=== PATIENT | female | born 1985 | race Caucasian/White ===

== ENCOUNTER 2024-09-02 09:17 | Emergency (ER) | payer MEDICAID, SELFPAY ==
[2024-09-02 09:30] VITALS: BP 129/87; PULSE 78; RESP 18; TEMP 36.8; O2SAT 97; BMI 37.4
[2024-09-02] MEDS: DEXAMETHASONE SOD PHOS INJ 10 MG/ML VIAL PO (10:32)
[2024-09-02] MEDS: DiphenhydrAMINE 25 MG CAPSULE PO (10:34)
[2024-09-02] MEDS: LIDOCAINE HCL 1% 20 ML VIAL 2.1 ML INFL (10:34)
[2024-09-02] MEDS: cefTRIAXone SOD INJ 1,000 MG VIAL 1000 MG IM (10:35)
--- NOTE | 2024-09-02 10:38 | PD.EDEYE ---
ED Eye Problem RME/HPI General Chief complaint: Eye Problems Stated complaint: LEFT EYE LID SWOLLEN WHEN SHE WOKE UP Time Seen by Provider: 09/02/24 09:25 Arrival date/time: 09/02/24 09:17 38-year-old female presents the emergency department today for complaints of left upper eyelid swelling erythema and pain Limitations: no limitations Related Data Previous Rx's ?Medication ?Instructions ?Recorded clindamycin HCl 300 mg capsule 300 mg PO TID 7 days #21 caps 09/02/24 erythromycin 5 mg/gram (0.5 %) eye 1.25 cm ophthalmic (eye) QID 7 09/02/24 ointment days #3.5 grams ibuprofen 600 mg tablet 600 mg PO Q6H #30 tabs 09/02/24 Allergies Allergy/AdvReac Type Severity Reaction Status Date / Time No Known Allergies Allergy Verified 09/02/24 09:21 Review of Systems Review of Systems Systems Reviewed: All systems reviewed, normal except as documented Constitutional Constitutional: Reports system reviewed and no additional complaints, except as documented, Denies fever(s) and Denies headache(s) Eyes Eyes: Reports system reviewed and no additional complaints, except as documented, Denies blurry vision and Reports other (Stye left eye) ENT Ears, Nose, Mouth, and Throat: Reports system reviewed and no additional complaints, except as documented, Denies headache(s), Denies nasal congestion and Denies nasal discharge Cardiovascular Cardiovascular: Reports system reviewed and no additional complaints, except as documented, Denies chest pain and Denies dyspnea Respiratory Respiratory: Reports system reviewed and no additional complaints, except as documented, Denies chest congestion, Denies cough and Denies dyspnea Gastrointestinal Gastrointestinal: Reports system reviewed and no additional complaints, except as documented and Denies abdominal pain Integumentary/Breasts Skin/Breast: Reports system reviewed and no additional complaints, except as documented and Denies rash Neurologic Neurologic: Reports system reviewed and no additional complaints, except as documented, Reports as per HPI and Denies headache(s) Past Medical History Social History SMOKING STATUS: Former smoker ED Exam General Limitations: Present no limitations General appearance: Present alert and in no apparent distress Head Head exam: Present atraumatic Eye Eye exam: Present normal appearance, PERRL, EOMI and other (Left upper eyelid swelling) ENT ENT exam: Present normal exam, normal oropharynx and mucous membranes moist Neck Neck exam: Present normal inspection, full ROM and trachea midline Chest Chest inspection: Present normal inspection and symmetric chest wall rise Respiratory Respiratory exam: Present normal lung sounds bilaterally Cardiovascular Cardiovascular exam: Present regular rate, normal rhythm and normal heart sounds Abdominal Exam Abdominal exam: Present soft and normal bowel sounds Extremities Exam Extremities exam: Present normal inspection and full ROM Back Exam Back exam: Present normal inspection and full ROM Neurological Exam Neurological exam: Present alert, oriented X3 and CN II-XII intact Psychiatric Psychiatric exam: Present normal affect and normal mood Skin Skin exam: Present warm, dry and other (Left upper eyelid swelling, stye) Course Quality Measures none Orders Category Date Time Status Dexamethasone Inj [Decadron Inj] Med 09/02/24 09:43 Discontinued 10 mg PO X1 ONE DiphenhydrAMINE [Benadryl] Med 09/02/24 09:43 Discontinued 25 mg PO X1 ONE Lidocaine 1% 20 ml [Xylocaine 1% 20 ML] Med 09/02/24 09:43 Discontinued 2.1 ml INFL X1 ONE cefTRIAXone [Rocephin] Med 09/02/24 09:43 Discontinued 1,000 mg IM X1 ONE Vital Signs Vital signs: Vital Signs Temperature 98.2 F 09/02/24 09:30 Pulse Rate 78 09/02/24 09:30 Respiratory Rate 18 09/02/24 09:30 Blood Pressure 129/87 H 09/02/24 09:30 Pulse Oximetry (%) 97 09/02/24 09:30 Oxygen Delivery Method Room Air 09/02/24 09:30 O2 saturation 97% room air within normal limits Eye MDM Narrative MDM Narrative:: 38-year-old female presents the emergency department today for complaints of left upper eyelid swelling erythema and pain On exam patient appears to have a stye left upper eyelid Patient has erythema and swelling to left upper eyelid patient given antibiotics here discharged home with antibiotics and pain medication Patient has no circumferential swelling no evidence of periorbital cellulitis Patient reports no disturbance of vision no eye pain Patient discharged home in no distress to follow-up with primary care doctor in the next 24 to 48 hours and for any worsening symptoms to return to the ER immediately Patient data External records reviewed:: [facility] previous records Clinical information provided by:: patient Social determinants that could affect healthcare access:: none Patient has the following chronic illnesses:: None How is presenting disease/condition affected by chronic disease/condition?: no chronic disease Evaluation data The following diagnostics were reviewed and interpreted by me:: other (specify) Lab and/or radiology exams considered but not ordered:: Consider not ordered Interpretation Summary: N/A Medications / Prescriptions Medications or Prescriptions considered but not ordered:: Given Medication administrations:: Medication Administration History Discontinued Medications Ceftriaxone Sodium (Ceftriaxone Sod Inj 1,000 Mg Vial) 1,000 mg IM X1 ONE Stop: 09/02/24 09:44 Last Admin: 09/02/24 10:35 Dose: 1,000 mg Documented By: BARTOLOME Dexamethasone Sodium Phosphate (Dexamethasone Sod Phos Inj 10 Mg/Ml Vial) 10 mg PO X1 ONE Stop: 09/02/24 09:44 Last Admin: 09/02/24 10:32 Dose: 10 mg Documented By: BARTOLOME Comments: given orally Diphenhydramine HCl (Diphenhydramine 25 Mg Capsule) 25 mg PO X1 ONE Stop: 09/02/24 09:44 Last Admin: 09/02/24 10:34 Dose: 25 mg Documented By: BARTOLOME Lidocaine HCl (Lidocaine Hcl 1% 20 Ml Vial) 2.1 ml INFL X1 ONE Stop: 09/02/24 09:44 Last Admin: 09/02/24 10:34 Dose: 2.1 ml Documented By: BARTOLOME Given Consultations Consultation(s) initiated? (list below): No Diagnosis Eye Problem Differential Diagnosis: other Most likely diagnosis given after review of the tests above:: Stye Admission Indicated Admission indicated?: not indicated Admission Request Was there a request for admission?: No Disposition Plan Disposition Plan: Discharge Discharge Attestation Discharge Attestation: The patient and all family members were given an opportunity to ask questions and understood the discharge instructions. Discharge instructions specifically effects, indications for sooner follow up or return to the emergency department, and the expected course of current diagnosis. Patient condition: Stable Discharge Plan Plan Patient Disposition: HOME (Self Care) Discharge Disposition comment: Stable Patient condition on transfer: Stable Prescriptions/Referrals Prescriptions/Med Rec: New clindamycin HCl 300 mg capsule 300 mg PO TID 7 Days Qty: 21 0RF erythromycin 5 mg/gram (0.5 %) ointment 1.25 cm OPHTHALMIC QID 7 Days Qty: 3.5 0RF ibuprofen 600 mg tablet 600 mg PO Q6H Qty: 30 0RF Referrals: Rabia Ferrell DO [Primary Care Provider] - 05/22/25 Problem List Clinical Impression: Hordeolum externum left upper eyelid Patient/Caregiver Discharge Instructions Education Materials: ED Sty Additional Instructions: Please follow up with your primary care doctor in the next 24-48hrs for any worsening symptoms return here immediately Print Language: Spanish Stand Alone Forms: [employer]eba Award Info., Work/School Release, Patient Portal Info Letter PA/SOLE MOLDING MACHINE OPERATOR Supervising Physician PA/SOLE MOLDING MACHINE OPERATOR Supervising Physician: Dr calhoun
== END 2024-09-02 10:57 | disposition home or self-care (01) ==
PROVIDERS: Emergency Provider Emergency Medicine; PCP Family Medicine
DX: H00.014 Hordeolum externum left upper eyelid (principal)
CPT/HCPCS: 96372; 99283; J0696; J1100; J3490; A9270

== ENCOUNTER 2025-03-02 19:24 | Emergency (ER) | payer MEDICAID, SELFPAY ==
[2025-03-02 19:25] VITALS: BMI 43.0
--- NOTE | 2025-03-02 19:27 | EKG_ITS ---
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
[2025-03-02 19:40] VITALS: BP 131/88; PULSE 88; RESP 20; TEMP 37.6; O2SAT 95
--- NOTE | 2025-03-02 19:43 | XR_ITS ---
EXAMINATION: PA chest single view TECHNIQUE: Upright PA chest single view Date and time: March 02, 20252003 hours INDICATIONS: Chest pain dizziness shortness of breath beginning 1 week ago FINDINGS: Normal heart size Lungs are clear. Osseous structures are intact IMPRESSION: No active disease
--- NOTE | 2025-03-02 19:45 | EDRME_ITS ---
Rapid Medical Screening [facility] Arrival date/time: 03/02/25 19:24 This is a case of 39-year-old female who have history of hypertension and irregular heartbeat came in in the emergency room due to chest pain shortness of breath and palpitation today worsening of the symptoms this patient decided to sought consult here in the emergency room Chief Complaint: Chest Pain Time Seen by Provider: 03/02/25 19:30 Vital signs: Vital Signs Temperature 99.6 F 03/02/25 19:40 Pulse Rate 88 03/02/25 19:40 Respiratory Rate 20 03/02/25 19:40 Blood Pressure 131/88 H 03/02/25 19:40 Pulse Oximetry (%) 95 03/02/25 19:40 Oxygen Delivery Method Room Air 03/02/25 19:40 Exam: Normal rate regular rhythm no murmur lungs sound is clear no crackles no rales no rhonchi no wheezing Clinical Impression: Chest pain
[2025-03-02 20:10] LABS: Basophils # (Auto) 0.0 Thou/mm3 (0.0-0.2); Basophils % (Auto) 0 % (0-2.5); Eosinophils # (Auto) 0.1 Thou/mm3 (0.0-0.5); Eosinophils % (Auto) 1 % (0-10); Hematocrit 31.8 % (36.0-46.0); Hemoglobin 9.7 g/dL (12.0-16.0); Immature Granulocytes Auto 0.03 Thou/mm3 (0.00-0.00); Lymphocytes # (Auto) 1.0 Thou/mm3 (1.0-4.8); Lymphocytes % (Auto) 14 % (10-50); Mean Corpuscular HGB Conc 30.5 g/dl (31.0-37.0); Mean Corpuscular Hemoglobin 22.8 pg (25.0-35.0); Mean Corpuscular Volume 75 fL (80-100); Monocytes # (Auto) 0.7 Thou/mm3 (0.0-0.8); Monocytes % (Auto) 10 % (0-12); Neutrophils # (Auto) 5.3 Thou/mm3 (1.8-7.7); Neutrophils % (Auto) 74 % (37-80); Nucleated Red Blood Cell # 0.00 Thou/mm3 (0.00-0.00); Nucleated Red Blood Cell % 0 /100 WBC (0); Platelet Count 336 Thou/mm3 (140-440); RDW Standard Deviation 52.3 fL (36.4-46.3); Red Blood Count 4.26 Miln/mm3 (4.00-5.20); White Blood Count 7.1 Thou/mm3 (3.6-11.0)
[2025-03-02 20:26] LABS: D-Dimer < 250 ng/mL (<600)
[2025-03-02 20:28] LABS: B-Type Natriuretic Peptide 22 pg/mL (0-100)
[2025-03-02 20:33] LABS: Alanine Aminotransferase 12 U/L (10-49); Albumin, Serum 4.5 gm/dL (3.5-5.0); Albumin/Globulin Ratio 2.0 (1.2-2.2); Alkaline Phosphatase 114 U/L (46-116); Anion Gap 8 (7-16); Aspartate Amino Transferase 11 U/L (0-34); BUN/Creatinine Ratio 10 Ratio (12-20); Bilirubin,Total 0.2 mg/dL (0.3-1.2); Blood Urea Nitrogen 6 mg/dL (9-23); Calcium 9.5 mg/dL (8.3-10.6); Calcium (Corrected) 9.5 mg/dL (8.5-10.1); Carbon Dioxide 26.0 mMol/L (20.0-31.0); Chloride 107 mMol/L (98-107); Creatinine (Component) 0.6 mg/dL (0.6-1.3); Estimated Creatinine Clearance 134.9 mL/min (>60); Globulin 2.3 gm/dL (2.3-3.5); Glucose 82 mg/dL (74-106); Osmolality,Calculated 277 (275-295); Potassium 3.9 mMol/L (3.4-5.1); Sodium 141 mMol/L (136-145); Thyroid Stimulating Hormone 0.23 uIU/mL (0.55-4.78); Total Protein 6.8 gm/dL (5.7-8.2); Troponin I < 0.002 ng/mL (0.0-0.045); eGFR > 60 See Note
[2025-03-02 20:48] LABS: Collection Type, Urine Clean Catch
[2025-03-02 20:52] LABS: Bilirubin,Urine Negative (Negative); Blood,Urine Negative (Negative); Clarity,Urine Clear (Clear/Hazy); Color,Urine Yellow (Lt Yel-Yel); Glucose, Urine Negative (Negative); Ketones,Urine Negative (Negative); Leukocyte Esterase,Urine Negative (Negative); Nitrite,Urine Negative (Negative); PH,Urine 6.5 (5.0-7.0); Protein,Urine Negative (Neg - Trace); RBC,Urine 2 /hpf (0-3); Specific Gravity,Urine 1.029 (1.001-1.035); Squamous Epithelial Cell,Urine 3 /hpf (0-5); Urobilinogen,Urine 2.0 mg/dL (0.0-1.0); WBC,Urine 2 /hpf (0-5)
[2025-03-02 22:15] VITALS: BP 133/87; PULSE 88; RESP 19; TEMP 37.3; O2SAT 98
--- NOTE | 2025-03-02 22:19 | EDNOTE_ITS ---
ED General RME/HPI General Chief complaint: Chest Pain Stated complaint: THIGHTNESS IN CHEST, DIZZINESS, COUGH Time Seen by Provider: 03/02/25 19:30 Arrival date/time: 03/02/25 19:24 CC: Chest pain after cough HPI ongoing for the last 10 days to 2 weeks, patient also has nasal congestion. Patient states a cough that comes so that the patient becomes lightheaded or dizzy and has chest pain but these all spontaneously resolved after the coughing fit is over. Patient denies fever chills shortness of breath or difficulty breathing. Does not have chest pain at rest or when not coughing. Patient is has a history of anemia but is noncompliant with her iron supplements. Patient is awake alert oriented nonto xic-appearing not in any acute distress. RME / HPI RME / HPI narrative: 03/02/25 19:24 This is a case of 39-year-old female who have history of hypertension and irregular heartbeat came in in the emergency room due to chest pain shortness of breath and palpitation today worsening of the symptoms this patient decided to sought consult here in the emergency room Exam: Normal rate regular rhythm no murmur lungs sound is clear no crackles no rales no rhonchi no wheezing Impression: Chest pain Related Data Previous Rx's ?Medication ?Instructions ?Recorded ibuprofen 600 mg tablet 600 mg PO Q6H #30 tabs 09/02 cetirizine 10 mg tablet 10 mg PO QDAY PRN allergy sy mptoms 03/02/25 #14 tabs guaifenesin 100 mg/5 mL oral liquid 200 mg (10 mL) PO Q4H PRN cough 03/02/25 #473 mL Allergies Allergy/AdvReac Type Severity Reaction Status Date / Time No Known Allergies Allergy Verified 03/02/25 19:24 Review of Systems Review of Systems Narrative Review of Systems: GEN: No fever, no chills, no weight loss EYES: No discharge, no visual changes, no pain HEENT: No ear pain, no congestion, no sore throat PULM: No shortness of breath, + cough, no congestion CV: No chest pain, no dyspnea on exertion, no palpitations GI: No nausea, no vomiting, no diarrhea, no pain, no constipation : No frequency, no urgency, no dysuria MUSC/SKEL: No joint pain, no back pain SKIN: No rash PSYCH: No hallucinations, no depression HEME/LYMPH: No easy bleeding or bruising tendencies NEURO: No weakness, no headache ED Exam Narrative Physical exam: [General: Morbidly obese not in any acute distress Head normocephalic HEENT: Within acceptable limits Neck is supple nontender Chest equal chest rise nontender to palpation Respiratory: Clear to auscultation no wheezes crackles or rubs CV: Rate rhythm is regular no murmurs rubs or clicks Abdomen is distended secondary to body habitus soft nontender no masses positive bowel sounds all 4 quadrants Back: No CVA tenderness no spinous process tenderness from cervical spine thoracic and lumbar spine Skin: Intact no petechiae rash induration ulceration or crepitus Extremities: Moving all extremity against resistance cap refill less than 2 seconds neurosensory intact Neuro: Awake alert oriented x3 Glascow coma 15 no focal deficits] Course Quality Measures none Orders Category Date Time Status EKG (ED ONLY) *Do not use* NOW Care 03/02/25 19:27 Completed EKG (ED Only) Stat Exams 03/02/25 19:27 Draft XR chest 1V Stat Exams 03/02/25 19:43 Completed BNP [B-Type Natriuretic Peptide] Stat Lab 03/02/25 19:59 Completed CBC Stat Lab 03/02/25 19:59 Completed Comprehensive Metabolic Panel Stat Lab 03/02/25 19:59 Completed D-Dimer Stat Lab 03/02/25 19:59 Completed TSH [Thyroid Stimulating Hormone] Stat Lab 03/02/25 19:59 Completed Troponin I Stat Lab 03/02/25 19:59 Completed Urinalysis Stat Lab 03/02/25 20:36 Completed Vital Signs Vital signs: Vital Signs Temperature 99.6 F 03/02/25 19:40 Pulse Rate 88 03/02/25 19:40 Respiratory Rate 20 03/02/25 19:40 Blood Pressure 131/88 H 03/02/25 19:40 Pulse Oximetry (%) 95 03/02/25 19:40 Oxygen Delivery Method Room Air 03/02/25 19:40 Discharge Plan Plan Patient Disposition: HOME (Self Care) Patient condition on transfer: Stable Prescriptions/Referrals Prescriptions/Med Rec: New guaifenesin 100 mg/5 mL liquid 200 mg PO Q4H PRN (Reason: cough) Qty: 473 0RF cetirizine 10 mg tablet 10 mg PO QDAY PRN (Reason: allergy symptoms) Qty: 14 0RF No Action ibuprofen 600 mg tablet 600 mg PO Q6H Qty: 30 0RF Referrals: Rabia Ferrell DO [Primary Care Provider] - In 1 week Problem List Clinical Impression: Cough, Chest congestion, Chest pain Patient/Caregiver Discharge Instructions Other Activity Instructions:: I suspect this is all viral in nature, continue take the medications as prescribed ibuprofen or Tylenol for fever or minor aches and pains medications will help suppress the cough and allows you to break up the congestion. Follow-up with your primary care doctor please get back on your iron supplements for your anemia. Education Materials: ED Chest Pain, Noncardiac, ED Cough Chronic Uncertain Cause Adult Print Language: Pashto Stand Alone Forms: Beba Award Info., Patient Portal Info Letter, Work/School Release PA/GLOBAL SALES MANAGER Supervising Physician PA/GLOBAL SALES MANAGER Supervising Physician: Hiram De Leon ENP [facility] Clinical Information Provided by: patient Medical Records reviewed [facility] Meds/Rx considered, not ordered None Labs/Rad/Tests considered, not ordered None Chronic Illness/Social Conditions Explain: Obesity anemia EKG Interpretation EKG #1: EKG Interpretation: EKG performed at 1943 shows a ventricular rate of 94 PA interval 160 QRS of 8 9 QTc of 364 is normal sinus rhythm. Labs Lab(s) Interpretation(s): CBC shows no acute leukocytosis there is a significant anemia with hemoglobin at 9.7 hematocrit of 31.8 respectively no thrombocytopenia D-dimer is unremarkable CMP shows no significant electrolyte imbalances renal impairment transaminitis or T. bili elevation Troponin and BNP are within acceptable limits TSH is 0.23. Urine is negative for UTI Imaging Imaging interpretation: interpreted by me Imaging Interpretation(s): Chest x-ray is negative for any acute finding requires emergent or immediate intervention.
== END 2025-03-02 22:35 | disposition home or self-care (01) ==
PROVIDERS: Nurse Practitioner Family; Emergency Provider Emergency Medicine; PCP Family Medicine
DX: R07.9 Chest pain, unspecified (principal)
CPT/HCPCS: 36415; 71045; 80053; 81001; 83880; 84443; 84484; 85025; 85379; 93005; 99283